=== PATIENT | male | born 1955 ===

== ENCOUNTER 2016-10-09 05:54 | Inpatient (IN) | payer BC ==
[2016-10-09] MEDS ORDERED: THROMBIN (BOVINE) 20,000 UNIT VIAL TP ONE (06:31)
[2016-10-09] MEDS ORDERED: BUPIVACAINE/EPI 0.25% 30 ML SDV ONE ×2 (06:31→07:25)
[2016-10-09] MEDS ORDERED: BACITRACIN 50,000 UNITS/10 ML SYR IRR ONE (06:31)
[2016-10-09] MEDS ORDERED: LIDOCAINE 1% 5 ML SDV ID PRN (06:41)
[2016-10-09] MEDS ORDERED: LR 1,000 ML IV ONE (06:41)
[2016-10-09] MEDS ORDERED: REMIFENTANIL HCL 1 MG VIAL ONE ×2 (06:58→09:15)
[2016-10-09] MEDS ORDERED: PROPOFOL 200 MG/20 ML VIAL ONE (06:58)
[2016-10-09] MEDS ORDERED: fentaNYL 100 MCG/2 ML INJ ONE (06:58)
[2016-10-09] MEDS ORDERED: PROPOFOL/EMULSION 500 MG/50 ML BOTTLE IV ONE ×2 (06:58→09:15)
[2016-10-09] MEDS ORDERED: CHLORHEXIDINE GLUC HIBICLENS 118 ML BTL TP ONE (07:00)
[2016-10-09] MEDS ORDERED: ceFAZolin 2 GM/DEXTROSE 100 ML IV ONE (07:00)
[2016-10-09] MEDS ORDERED: morphINE PF 5 MG/10 ML INJ IT ONE (07:00)
[2016-10-09] MEDS ORDERED: LIDOCAINE 2% 100 MG/5 ML SYR ONE (07:03)
[2016-10-09] MEDS ORDERED: ROCURONIUM 50 MG/5 ML VIAL ONE (07:03)
[2016-10-09] MEDS ORDERED: MIDAZOLAM 2 MG/2 ML VIAL ONE (07:05)
[2016-10-09] MEDS ORDERED: DESFLURANE 240 ML BOTTLE IH ONE (08:20)
[2016-10-09] MEDS ORDERED: ONDANSETRON 4 MG/2 ML VIAL ONE (08:40)
[2016-10-09] MEDS ORDERED: DEXAMETHASONE 4 MG/ML VIAL ONE (08:40)
[2016-10-09] MEDS ORDERED: morphINE PF 10 MG/10 ML INJ ONE (08:57)
[2016-10-09] MEDS ORDERED: ceFAZolin 1 GM VIAL ONE (10:28)
[2016-10-09] MEDS ORDERED: HYDROmorphONE/DILAUDID 2 MG/ML INJ ONE (11:03)
[2016-10-09] MEDS ORDERED: LACTULOSE 20 GM/30 ML UDCUP PO PRN (11:25)
[2016-10-09] MEDS ORDERED: BISACODYL 10 MG SUPP PR PRN (11:25)
[2016-10-09] MEDS ORDERED: diphenhydrAMINE 25 MG CAP PO PRN (11:25)
[2016-10-09] MEDS ORDERED: DIAZEPAM 10 MG/2 ML SYR IVP PRN (11:25)
[2016-10-09] MEDS ORDERED: POLYETHYLENE GLYCOL 3350 17 GM PKT PO PRN (11:25)
[2016-10-09] MEDS ORDERED: MAGNESIUM HYDROXIDE 30 ML UDCUP PO PRN (11:25)
[2016-10-09] MEDS ORDERED: ONDANSETRON 4 MG/2 ML VIAL IVP PRN (11:25)
[2016-10-09] MEDS ORDERED: ONDANSETRON DISINTEGRATING 4 MG TAB PO PRN (11:25)
[2016-10-09] MEDS ORDERED: SUGAMMADEX SODIUM 200 MG/2 ML VIAL IVP ONE (11:27)
--- NOTE | 2016-10-09 11:44 | POSTOPPROG ---
Post Op Note Date of Operation: 10/09/16 Surgeon: Jarrod Moreno Horse Groomer: Abby Becker PA-C Anesthesia: GET(General Endotracheal) Pre-op Diagnosis: lumbar degenerative disc disease Post-op Diagnosis: same Indication: pain, radiculopathy Procedure: L4-S1 TLIF and posterior fusion Findings: Please see Dr. Moreno's operative report Inf/Abcess present in the surg proc area at time of surgery?: No Depth: Organ Space EBL: 100-500 Complications: none Drains: John PACHECO Addendum - Addendum .: S: Pt awake in PACU. O: Awake but sleepy NAD VSS MAEx4 Motor 5/5 BUE/BLE +LT Incision cdi Chandra in JPx1 A: 60 yo M s/p L4-S1 TLIF and posterior fusion P: PT/OT Pain management Brace when OOB TEDs, SCDs, Lovenox POD#1 Post op xrays pending DC chandra in AM Call NS with any issues
[2016-10-09] MEDS: METHOCARBAMOL 750 MG TAB PO PRN ×2 (13:28→22:37)
[2016-10-09] MEDS: OXYCODONE/APAP 5/325 TAB PO PRN ×4 (13:28→22:37)
[2016-10-09] MEDS: NS W/ 20 KCl/L 1,000 ML IV SCH (13:32)
[2016-10-09] MEDS: HYDROmorphONE/DILAUDID 1 MG/ML SYR IVP PRN ×2 (14:30→16:11)
--- NOTE | 2016-10-09 17:16 | GOP ---
[f rep st] OPERATIVE REPORT DATE OF OPERATION: 10/09/2016 SURGEON: Jarrod Moreno MD ANESTHESIA: General. PREOPERATIVE DIAGNOSIS: 1. L4 through S1 lumbar spondylosis with right L4-5 and left L5-S1 lateral recess and foraminal stenosis. 2. Low back pain with radiculopathy. 3. Treatment refractory to nonoperative intervention. POSTOPERATIVE DIAGNOSIS: 1. L4 through S1 lumbar spondylosis with right L4-5 and left L5-S1 lateral recess and foraminal stenosis. 2. Low back pain with radiculopathy. 3. Treatment refractory to nonoperative intervention. PROCEDURE PERFORMED: 1. Posterior arthrodesis with approach to L4, L5, and S1. 2. Posterolateral fusion with bilateral pedicle screw placement into L4, L5, and S1 from the FFWD system. 3. Right-sided L4-L5 hemilaminotomy with mesial facetectomy, foraminotomy, and nerve root decompression. 4. Left-sided L5-S1 redo hemilaminotomy with mesial facetectomy, foraminotomy, and nerve root decompression. 5. Right-sided L4-L5 transforaminal lumbar interbody fusion with an 8 x 28 mm titanium PEEK elevate cage filled with morselized autograft and allograft. 6. Left-sided L5-S1 transforaminal lumbar interbody fusion with an 8 x 26 mm titanium coated PEEK cage filled with morselized autograft and allograft. 7. Posterolateral fusion on the left between L4-5 and right side between L5-S1 with morselized autograft and allograft. 8. Use of intraoperative 3D Stealth navigation. 9. Use of intraoperative fluoroscopy, less than 1 hour physician time. 10. Use of neuromonitoring. 11. Use of the operating microscope. 12. Injection of preservative-free intrathecal narcotics. AUDIO RECORDING ENGINEER: Domonique Becker PA-C COMPLICATIONS: None. FINDINGS: per imaging SPECIMENS: None. ESTIMATED BLOOD LOSS: 250 mL. INDICATIONS: The patient is a 60-year-old gentleman, who presented with low back pain with lower extremity radiculopathy and imaging demonstrated spondylosis L4 through S1 with foraminal narrowing on right-sided L4-5 and left- sided L5-S1. After failing nonoperative intervention, and after discussion of the risks, benefits, and treatment alternatives, we decided to proceed forth with surgery as described above. DESCRIPTION OF PROCEDURE: Patient was brought to the operating theater and underwent general endotracheal anesthesia without complications. GARCIA hose and a Chew catheter were placed. The patient was then flipped prone onto the John table with all bony processes inspected and padded. The lower lumbar region was prepped and draped in the usual sterile surgical fashion. A time-out was completed per protocol and the patient received antibiotics within 1 hour of incision. Using lateral fluoroscopy and a spinal needle, we picked our entry point to the L4 through S1 levels. This was marked in the midline. An incision was then infiltrated with Marcaine with epinephrine. The incision was taken down with the scalpel blade, and then using the monopolar, taken down in the midline through the lumbodorsal fascia, and subperiosteal dissection carried out to the transverse processes of L4, L5, and S1 bilaterally. Care was taken to preserve the L3-4 facet joint. Deep retractors were placed to maintain our exposure, and we confirmed our level using lateral fluoroscopy. We attached the 3D Stealth navigation clamp to the spinous process of S1 and completed a 3D Stealth navigation spin. Using 3D Stealth navigation, we placed the spray pilot holes for the bilateral pedicle screws into L4, L5, and S1. All holes were manually palpated with no evidence of any cortical breaches. We then tapped and placed 6.5 x 55 mm screws bilaterally into L4 and L5, and a 6.5 x 45 mm screw on the left at S1 and 6.5 x 50 mm screw on the right at S1. Another 3D Stealth navigation spin demonstrated good position of the hardware. The microscope was brought into the field to assist with microscopic dissection to maintain illumination and magnification. Using a combination of the bur tip on the drill and Kerrison punches, we completed a right-sided L4-5 hemilaminotomy with mesial facetectomy, foraminotomy, and resection of the pars. We completed the same hemilaminotomy with pars resection on the left side at L5-S1. We moved up to L4-5 where we distracted the interspace. We completed a right-sided L4-5 diskectomy. We prepared the cartilaginous endplates and measured the interbody space. We placed an 8 x 20 mm titanium Peek elevate cage filled with morselized autograft and allograft anteriorly toward the midline. We packed additional morcellized autograft into the disk space for the interbody fusion. We let down our distraction and moved down to L5-S1 on the left side, where we distracted the interspace and completed a left-sided L5-S1 diskectomy. The thecal sac was extremely adherent to this level and scarred in place. We prepared the cartilaginous endplates and measured the interbody space. We then placed an 8 x 26 mm titanium-coated PEEK cage filled with morselized autograft and allograft anteriorly toward the midline. We packed additional morcellized autograft into the disk space for interbody fusion. Next we decorticated the bone on the left side between L4-L5 and right side L5- S1. We irrigated the wound copiously with bacitracin irrigation and placed 2 lordotic rods into the heads of the screws between L4 and S1, which we secured down with cap screws which were tightened per the pick up man's setting. We placed morselized autograft and allograft on the left side between L4-L5 and right side L5-S1 for the posterolateral fusion. We injected preservative-free intrathecal narcotics. A drain was left in the subfascial space, and the wound then closed in multiple layers using Vicryl sutures deep layers and Dermabond for skin. The patient's wounds were dressed sterilely. He was flipped supine onto the transfer cart, where he was awakened, extubated, and taken to the recovery room in stable condition. There were no complications and no noted changes on neuromonitoring throughout the procedure. /[id number]/MODL MTDD
[2016-10-09] MEDS: POLYETHYLENE GLYCOL 3350 17 GM PKT PO SCH ×2 (18:11→21:45)
[2016-10-09] MEDS: FAMOTIDINE 20 MG/NACL 50 ML IV SCH (21:44)
[2016-10-09] MEDS: SENNOSIDES/DOCUSATE SODIUM TAB PO SCH (21:45)
[2016-10-10] MEDS: OXYCODONE/APAP 5/325 TAB PO PRN ×2 (03:28→08:23)
[2016-10-10] MEDS: METHOCARBAMOL 750 MG TAB PO PRN ×3 (06:01→18:20)
[2016-10-10] MEDS: NS W/ 20 KCl/L 1,000 ML IV SCH (06:03)
[2016-10-10] MEDS: ENOXAPARIN 40 MG/0.4 ML SYR SC SCH (08:21)
[2016-10-10] MEDS: FAMOTIDINE 20 MG/NACL 50 ML IV SCH (08:21)
[2016-10-10] MEDS: SENNOSIDES/DOCUSATE SODIUM TAB PO SCH ×2 (08:22→20:42)
[2016-10-10] MEDS: POLYETHYLENE GLYCOL 3350 17 GM PKT PO SCH ×3 (08:22→23:37)
--- NOTE | 2016-10-10 08:28 | NEUSURGPN ---
Date of Surgery: 10/09/16 Post Op Day: 1 Assessment/Plan: Assessment: 60 yo M s/p L4-S1 TLIF and posterior fusion POD #1 Plan: -pt with some expected lower back pain, leg feels better -PT/OT -continue with current pain management -Brace when OOB -TEDs, SCDs, Lovenox POD#1 -Post op xrays pending this am -DC chandra this am -BRITTON continue at this time -Call NS with any issues Subjective: Awake and alert. NAD. Eating/drinking. Pt with expected lower back pain. No murray/neck/chest/abd or gu complaints. Objective: Awake and alert NAD VSS MAEx4 Motor 5/5 BUE/BLE +LT Incision cdi Chandra in-to be removed this am JPx1 Neuro Check Frequency: per routine Urinary Catheter in Place: Yes Urinary Catheter Indication: Surgical Requirement (to be removed this am) Catheter Insertion Date: 10/09/16 - Physician Discussed Patient with : Tiffanie Neurosurgery Physical Exam - Vitals, I&O, Labs I and O 10/09/16 10/10/16 10/11/16 05:59 05:59 05:59 Intake Total 3550 Output Total 1830 Balance 1720 Weight 100.244 kg Intake: Oral (ml) 900 IV Intake (ml) 1300 IV Infused (ml) 1350 Famotidine 20 mg/NaCl 50 50 ml @ 200 mls/hr IV Q12HRS [facility] Rx#:[id number] NS W/ 20 KCl/L 1,000 ml @ 1200 75 mls/hr IV CONT [facility] Rx #:[id number] ceFAZolin 1 GM/DEXTROSE 100 50 ml @ 200 mls/hr IV Q8HRS [facility] Rx#:[id number] Output: Urine (ml) 1300 Catheter 1300 Estimated Blood Loss (ml) 250 Wound Drainage (ml) 280 #1 John Dewitt 280 Other: Intake Quantity Yes Sufficient Vital Signs Temp Pulse Resp BP Pulse Ox 37.1 C 71 17 103/69 96 10/10/16 07:35 10/10/16 07:35 10/10/16 03:32 10/10/16 07:35 10/10/16 07:35 ICD10 Worksheet Patient Problems: Problems Problem Status Onset Arthrodesis status Acute Lumbar radicular pain Acute Lumbar stenosis Acute - ICD10 Problem Qualifiers (1) Lumbar stenosis (2) Lumbar radicular pain (3) Arthrodesis status
[2016-10-10] MEDS ORDERED: HYDROCORTISONE 2.5% 30 GM CRTUBE TP PRN (08:47)
[2016-10-10] MEDS ORDERED: traMADol 50 MG TAB PO PRN (08:47)
[2016-10-10] MEDS ORDERED: Lisdexamfetamine Dimesylate [Vyvanse] 30 MG PO SCH (09:00)
[2016-10-10] MEDS: buPROPion XL 150 MG TAB PO SCH (09:49)
[2016-10-10] MEDS: valACYclovir 500 MG TAB PO SCH (09:50)
[2016-10-10] MEDS: FLUNISOLIDE NASAL 200 SPRAYS/25 ML MDI EACHNARE SCH (09:51)
[2016-10-10] MEDS: oxyCODONE IR 5 MG TAB PO PRN ×3 (12:17→20:34)
[2016-10-10] MEDS ORDERED: TESTOSTERONE CYPIONATE IM SCH (14:00)
[2016-10-10] MEDS: DIAZEPAM 5 MG TAB PO PRN ×2 (15:04→20:35)
[2016-10-10] MEDS: morphINE SR 15 MG TAB PO SCH (17:01)
[2016-10-10] MEDS: HYDROCODONE/APAP 10/325 TAB PO PRN ×2 (19:18→23:26)
[2016-10-10] MEDS: METOPROLOL SUCCINATE XR 50 MG TAB PO SCH (20:42)
[2016-10-10] MEDS: FAMOTIDINE 20 MG TAB PO SCH (20:45)
[2016-10-10] MEDS: LOSARTAN POTASSIUM 50 MG TAB PO SCH (20:46)
[2016-10-10] MEDS ORDERED: NON-FORMULARY NEW DRUG (Losartan Potassium [Losartan Potassium] 100 MG) PO SCH (21:00)
[2016-10-11] MEDS: METHOCARBAMOL 750 MG TAB PO PRN ×3 (02:06→19:42)
[2016-10-11] MEDS: oxyCODONE IR 5 MG TAB PO PRN ×4 (02:06→18:44)
[2016-10-11] MEDS: DIAZEPAM 5 MG TAB PO PRN ×3 (03:52→20:52)
[2016-10-11] MEDS: HYDROCODONE/APAP 10/325 TAB PO PRN ×2 (03:53→09:33)
[2016-10-11] MEDS: SENNOSIDES/DOCUSATE SODIUM TAB PO SCH ×2 (07:53→20:53)
[2016-10-11] MEDS: morphINE SR 15 MG TAB PO SCH ×2 (07:53→20:54)
[2016-10-11] MEDS: FAMOTIDINE 20 MG TAB PO SCH ×2 (07:54→20:53)
[2016-10-11] MEDS: valACYclovir 500 MG TAB PO SCH (07:54)
[2016-10-11] MEDS: buPROPion XL 150 MG TAB PO SCH (07:54)
[2016-10-11] MEDS: ENOXAPARIN 40 MG/0.4 ML SYR SC SCH (07:54)
[2016-10-11] MEDS: Lisdexamfetamine Dimesylate [Vyvanse] 30 MG PO SCH (07:55)
[2016-10-11] MEDS: POLYETHYLENE GLYCOL 3350 17 GM PKT PO SCH ×3 (07:55→20:51)
[2016-10-11] MEDS: FLUNISOLIDE NASAL 200 SPRAYS/25 ML MDI EACHNARE SCH (08:10)
--- NOTE | 2016-10-11 08:46 | NEUSURGPN ---
Assessment/Plan: Assessment: 60 yo M s/p L4-S1 TLIF and posterior fusion POD #2 Plan: -pt with some expected lower back pain,c/o leg cramping - will add gabapentin -PT/OT -continue with current pain management -Brace when OOB -TEDs, SCDs, Lovenox POD#1 -Post op xrays show stable hardware -Remove BRITTON drain -Call NS with any issues -D/w Tiffanie Subjective: Pt resting in bedside chair, c/o leg cramping. Objective: AAOx3 NAD VSS MAEx4 Motor 5/5 BLE Incision dressed cdi JPx1 Urinary Catheter in Place: No Catheter Insertion Date: 10/09/16 - Physician Discussed Patient with Dr.: Tiffanie Neurosurgery Physical Exam - Vitals, I&O, Labs I and O 10/10/16 10/11/16 10/12/16 05:59 05:59 05:59 Intake Total 3550 1200 Output Total 1830 1640 Balance 1720 -440 Weight 100.244 kg Intake: Oral (ml) 900 1200 IV Intake (ml) 1300 IV Infused (ml) 1350 Famotidine 20 mg/NaCl 50 50 ml @ 200 mls/hr IV Q12HRS [facility] Rx#:[id number] NS W/ 20 KCl/L 1,000 ml @ 1200 75 mls/hr IV CONT [facility] Rx #:[id number] ceFAZolin 1 GM/DEXTROSE 100 50 ml @ 200 mls/hr IV Q8HRS [facility] Rx#:[id number] Output: Urine (ml) 1300 1550 Catheter 1300 Toilet 1350 Urinal 200 Estimated Blood Loss (ml) 250 Wound Drainage (ml) 280 90 #1 John Dewitt 280 90 Other: Intake Quantity Yes Yes Sufficient Number of Voids Toilet 1 Urinal 1 Vital Signs Temp Pulse Resp BP Pulse Ox 36.8 C 72 17 105/68 91 L 10/11/16 04:00 10/11/16 04:00 10/11/16 04:00 10/11/16 04:00 10/11/16 04:00 ICD10 Worksheet Patient Problems: Problems Problem Status Onset Arthrodesis status Acute Lumbar radicular pain Acute Lumbar stenosis Acute
[2016-10-11] MEDS ORDERED: GABAPENTIN 300 MG CAP PO SCH (09:00)
[2016-10-11] MEDS ORDERED: TESTOSTERONE CYPIONATE IM SCH (09:00)
[2016-10-11] MEDS ORDERED: ACETAMINOPHEN 500 MG TAB PO PRN (13:28)
[2016-10-11] MEDS: chlorproMAZINE HCL 25 MG TAB PO PRN (18:05)
[2016-10-11] MEDS: HYDROmorphONE/DILAUDID 1 MG/ML SYR IVP PRN (20:04)
[2016-10-11] MEDS: LOSARTAN POTASSIUM 50 MG TAB PO SCH (20:52)
[2016-10-11] MEDS: METOPROLOL SUCCINATE XR 50 MG TAB PO SCH (20:53)
[2016-10-11] MEDS: ACETAMINOPHEN 325 MG TAB PO PRN (23:17)
[2016-10-12] MEDS: HYDROmorphONE/DILAUDID 1 MG/ML SYR IVP PRN (03:21)
[2016-10-12] MEDS: chlorproMAZINE HCL 25 MG TAB PO PRN (06:34)
[2016-10-12] MEDS: METHOCARBAMOL 750 MG TAB PO PRN (06:38)
--- NOTE | 2016-10-12 07:14 | NEUSURGPN ---
Date of Surgery: 10/09/16 Post Op Day: 3 Assessment/Plan: Assessment: 60 yo M s/p L4-S1 TLIF and posterior fusion POD #3 Plan: -pt with some expected lower back pain, leg feels better -pain control is his biggest issue -PT/OT-CPM -continue with current pain management but will add gabapentin 300mg TID -Brace when OOB -TEDs, SCDs, Lovenox POD#1 -Post op xrays look good -Chew and BRITTON out -Call NS with any issues Subjective: Awake and alert. NAD. Eating/drinking and voiding. No f/c/n/v/d. No murray/neck/ chest/abd or gu complaints. Objective: AAOx3 NAD VSS MAEx4 Motor 5/5 BLE Incision dressed cdi Neuro Check Frequency: per routine Catheter Insertion Date: 10/09/16 - Physician Discussed Patient with : Tiffanie Neurosurgery Physical Exam - Vitals, I&O, Labs I and O 10/11/16 10/12/16 10/13/16 05:59 05:59 05:59 Intake Total 1200 674 Output Total 1640 450 Balance -440 224 Intake: Oral (ml) 1200 IV Infused (ml) 674 NS W/ 20 KCl/L 1,000 ml @ 674 75 mls/hr IV CONT [facility] Rx #:[id number] Output: Urine (ml) 1550 450 Toilet 1350 450 Urinal 200 Wound Drainage (ml) 90 #1 John Dewitt 90 Other: Intake Quantity Yes Sufficient Number of Voids Toilet 1 2 Urinal 1 Vital Signs Temp Pulse Resp BP Pulse Ox 37.7 C 105 H 16 123/84 H 92 10/11/16 23:12 10/11/16 23:12 10/11/16 23:12 10/11/16 23:12 10/11/16 23:12 ICD10 Worksheet Patient Problems: Problems Problem Status Onset Arthrodesis status Acute Lumbar radicular pain Acute Lumbar stenosis Acute - ICD10 Problem Qualifiers (1) Lumbar stenosis (2) Lumbar radicular pain (3) Arthrodesis status
[2016-10-12] MEDS ORDERED: DIAZEPAM 5 MG TAB PO PRN (07:16)
[2016-10-12] MEDS: ENOXAPARIN 40 MG/0.4 ML SYR SC SCH (08:07)
[2016-10-12] MEDS: SENNOSIDES/DOCUSATE SODIUM TAB PO SCH ×2 (08:08→21:00)
[2016-10-12] MEDS: valACYclovir 500 MG TAB PO SCH (08:08)
[2016-10-12] MEDS: morphINE SR 15 MG TAB PO SCH ×3 (08:09→22:38)
[2016-10-12] MEDS: buPROPion XL 150 MG TAB PO SCH (08:11)
[2016-10-12] MEDS: FAMOTIDINE 20 MG TAB PO SCH ×2 (08:11→21:00)
[2016-10-12] MEDS: GABAPENTIN 300 MG CAP PO SCH ×3 (08:12→22:43)
[2016-10-12] MEDS: POLYETHYLENE GLYCOL 3350 17 GM PKT PO SCH ×3 (08:37→22:38)
[2016-10-12] MEDS: Lisdexamfetamine Dimesylate [Vyvanse] 30 MG PO SCH (11:06)
[2016-10-12] MEDS: FLUNISOLIDE NASAL 200 SPRAYS/25 ML MDI EACHNARE SCH (11:06)
[2016-10-12] MEDS: METHOCARBAMOL 750 MG TAB PO SCH ×3 (12:16→21:00)
[2016-10-12] MEDS: oxyCODONE IR 5 MG TAB PO PRN ×3 (12:16→21:01)
[2016-10-12] MEDS: HYDROCODONE/APAP 10/325 TAB PO PRN (21:02)
[2016-10-12] MEDS: METOPROLOL SUCCINATE XR 50 MG TAB PO SCH (21:02)
[2016-10-12] MEDS: LOSARTAN POTASSIUM 50 MG TAB PO SCH (21:03)
[2016-10-12 23:14] VITALS: TEMP 98.6
[2016-10-13] MEDS: oxyCODONE IR 5 MG TAB PO PRN ×3 (01:06→09:55)
[2016-10-13] MEDS: HYDROCODONE/APAP 10/325 TAB PO PRN ×3 (02:53→11:35)
[2016-10-13] MEDS: METHOCARBAMOL 750 MG TAB PO SCH ×3 (05:30→12:40)
[2016-10-13 08:09] VITALS: BP 141/79; PULSE 82; RESP 18; O2SAT 91
[2016-10-13] MEDS: valACYclovir 500 MG TAB PO SCH (08:24)
[2016-10-13] MEDS: buPROPion XL 150 MG TAB PO SCH (08:24)
[2016-10-13] MEDS: SENNOSIDES/DOCUSATE SODIUM TAB PO SCH (08:24)
[2016-10-13] MEDS: ENOXAPARIN 40 MG/0.4 ML SYR SC SCH (08:24)
[2016-10-13] MEDS: FAMOTIDINE 20 MG TAB PO SCH (08:24)
[2016-10-13] MEDS: POLYETHYLENE GLYCOL 3350 17 GM PKT PO SCH (08:25)
[2016-10-13] MEDS: GABAPENTIN 300 MG CAP PO SCH (08:25)
[2016-10-13] MEDS: morphINE SR 15 MG TAB PO SCH (09:56)
[2016-10-13] MEDS: chlorproMAZINE HCL 25 MG TAB PO PRN (09:57)
--- NOTE | 2016-10-13 10:52 | SOAPPROG ---
SOAP Progress Note Assessment/Plan: Assessment: 60 yo M s/p L4-S1 TLIF and posterior fusion POD #4 Plan: -pt with some expected lower back pain, leg feels better -continue with current pain management but will add gabapentin 300mg TID -Brace when OOB -TEDs, SCDs, Lovenox POD#1 -Post op xrays look good - DC home today 10/13/16 10:53 Subjective: sitting on side of bed. pain much better controlled. abulated hallway twice Objective: Vital Signs Temp Pulse Resp BP Pulse Ox 37.0 C 82 18 141/79 H 91 L 10/12/16 23:09 10/13/16 08:00 10/13/16 08:00 10/13/16 08:00 10/13/16 08:00 10/12/16 10/13/16 10/14/16 05:59 05:59 05:59 Intake Total 674 2150 Output Total 450 875 Balance 224 1275 NEURO: TOLENTINO, sens +LT incision: CDI ICD10 Worksheet Patient Problems: Problems Problem Status Onset Arthrodesis status Acute Lumbar radicular pain Acute Lumbar stenosis Acute
[2016-10-13] MEDS: FLUNISOLIDE NASAL 200 SPRAYS/25 ML MDI EACHNARE SCH (10:59)
[2016-10-13] MEDS: Lisdexamfetamine Dimesylate [Vyvanse] 30 MG PO SCH (11:00)
[2016-10-13] MEDS: ACETAMINOPHEN 325 MG TAB PO PRN (12:40)
== END 2016-10-13 13:42 | disposition home or self-care (01) | DRG 460 ==
LOC: F3N 05:54
PROVIDERS: ADMIT Neurological Surgery; ATTEND Neurological Surgery
DX: M47.26 Other spondylosis with radiculopathy, lumbar region (principal); M47.27 Other spondylosis with radiculopathy, lumbosacral region; M51.36 Other intervertebral disc degeneration, lumbar region; I10 Essential (primary) hypertension; G47.33 Obstructive sleep apnea (adult) (pediatric); F41.9 Anxiety disorder, unspecified
CPT/HCPCS: 97116-GP; 97161-GP; 97165-GO; 97530-GP; C1713; C1762; J0690; J1100; J1170; J1200; J1650; J2001; J2250; J2274; J2405; J2704; J3010